=== PATIENT | female | born 1960 | race African-American/Black ===

== ENCOUNTER 2018-08-22 07:39 | Emergency (ER) | payer SELFPAY ==
[~2018-08-22] VITALS: Ht 160 cm; Wt 55.0 kg
[2018-08-22] MEDS ORDERED: SODIUM CHLORIDE 0.9% 1,000 ML IV ONE (08:04)
[2018-08-22] MEDS ORDERED: KETOROLAC 30MG/ML VIAL IV STA (08:04)
[2018-08-22] MEDS ORDERED: ONDANSETRON HCL 4MG/2ML INJ IV STA (08:04)
[2018-08-22] MEDS ORDERED: ACETAMINOPHEN 325MG TABLET PO ONE (08:45)
[2018-08-22 08:49] LABS: BASOPHILS % 0.5 % (0.0-2.0); EOSINOPHILS % 1.1 % (0.0-5.0); HEMATOCRIT. 40.4 % (36.0-48.0); HEMOGLOBIN. 13.5 g/dL (12.0-16.0); MEAN CORPUSCULAR HEMOGLOBIN 30.4 pg (28.0-32.0); MEAN CORPUSCULAR VOLUME 90.7 fL (81.0-99.0); MEAN PLATELET VOLUME 9.6 fl (7.4-10.4); MONOCYTES % 7.3 % (2.0-8.0); NEUTROPHILS % 70.1 % (40.0-76.0); PLATELET 243 x1000/uL (130-400); RED BLOOD CELL COUNT 4.45 mill/uL (4.2-5.4); RED CELL DISTRIBUTION WIDTH 14.7 % (11.6-14.6)
[2018-08-22 08:55] LABS: CHLORIDE 104 mEq/L (98-107)
[2018-08-22 12:30] VITALS: BP 138/76
== END 2018-08-22 12:32 | disposition home or self-care (01) ==
LOC: ER 08:05
DX: B34.9 Viral infection, unspecified (principal); J02.9 Acute pharyngitis, unspecified; M79.10 Myalgia, unspecified site; J45.909 Unspecified asthma, uncomplicated; R56.9 Unspecified convulsions; I10 Essential (primary) hypertension; Z86.73 Personal history of transient ischemic attack (TIA), and cerebral infarction without residual deficits; Z88.6 Allergy status to analgesic agent
CPT/HCPCS: 36415; 71045; 80053; 85025; 87804; 96361; 96374; 99285; J2405; J7030

== ENCOUNTER 2021-08-16 13:45 | Inpatient (IN) | payer MEDICAID, OTHER ==
[~2021-08-16] VITALS: Ht 157.5 cm; Wt 57.3 kg
[2021-08-16 15:00] LABS: BASOPHILS % 0.6 % (0.0-2.0); EOSINOPHILS % 0.4 % (0.0-5.0); HEMATOCRIT. 37.9 % (36.0-48.0); HEMOGLOBIN. 12.9 g/dL (12.0-16.0); LYMPHOCYTES % 32.6 % (20.0-50.0); MEAN CORPUSCULAR HEMOGLOBIN 35.5 pg (28.0-32.0); MEAN CORPUSCULAR VOLUME 104.7 fL (81.0-99.0); MEAN PLATELET VOLUME 10.6 fl (7.4-10.4); MONOCYTES % 14.9 % (2.0-8.0); NEUTROPHILS % 51.5 % (40.0-76.0); PLATELET 175 x1000/uL (130-400); RED BLOOD CELL COUNT 3.62 mill/uL (4.2-5.4); RED CELL DISTRIBUTION WIDTH 17.7 % (11.6-14.6)
[2021-08-16 15:08] LABS: CHLORIDE 89 mEq/L (98-107)
[2021-08-16 15:11] LABS: *AMPHETAMINES SCREEN URINE NEGATIVE (NEGATIVE); *BARBITURATES SCREEN URINE NEGATIVE (NEGATIVE); *BENZODIAZEPINES SCREEN URINE NEGATIVE (NEGATIVE); *COCAINE SCREEN URINE NEGATIVE (NEGATIVE); CANNABINOID URINE SCREEN PRESUMTIVE POSITIVE (NEGATIVE); METHADONE URINE SCREEN NEGATIVE (NEGATIVE); OPIATES URINE SCREEN NEGATIVE (NEGATIVE); PHENCYCLIDINE URINE SCREEN NEGATIVE (NEGATIVE)
[2021-08-16 15:16] LABS: ETHANOL BLOOD 50 mg/dL
[2021-08-16 15:18] LABS: BG BASE EXCESS 9.4 mmol/L (-2.0-2.0); BG CARBOXYHEMOGLOBIN 1.6 % (0.5-1.5); BG DEOXYHEMOGLOBIN 15.4 % (0.0-5.0); BG FRACTION INSPIRED OXYGEN 21; BG HCO3 ACT 32.7 mmol/L (22.0-26.0); BG METHEMOGLOBIN 0.7 % (0.0-1.5); BG OXYGEN SATURATION 84.2 % (92.0-98.5); BG OXYHEMOGLOBIN 82.3 % (94.0-97.0); BG PCO2 39.8 mmHg (35.0-45.0); BG PH 7.533 (7.350-7.450); BG PO2 45.8 mmHg (75.0-100.0); BG SAMPLE SITE RIGHT BRACHIAL; BG TOTAL HEMOGLOBIN 12.1 g/dL (12.0-18.0); BG VENT MODE ROOM AIR
[2021-08-16] MEDS ORDERED: CEFTRIAXONE 1 G PREMIX 50 ML IV ONE (15:30)
[2021-08-16] MEDS ORDERED: AZITHROMYCIN 500MG/250ML 250 ML IV ONE (15:30)
[2021-08-16] MEDS ORDERED: DEXAMETHASONE 10 MG/ML VIAL IV ONE (15:30)
[2021-08-16] MEDS ORDERED: DIPHENHYDRAMINE 50MG/ML VIAL IV PRN (20:30)
[2021-08-16] MEDS ORDERED: ONDANSETRON HCL 4MG/2ML INJ IV PRN (20:30)
[2021-08-16] MEDS ORDERED: CEFTRIAXONE 1 G PREMIX 50 ML IV SCH (20:30)
[2021-08-16] MEDS ORDERED: CLONIDINE 0.1MG TABLET PO PRN (20:30)
[2021-08-16] MEDS ORDERED: POTASSIUM CHLORIDE 20MEQ TABLET SR PO ONE (20:30)
[2021-08-16] MEDS: ENOXAPARIN 40MG/0.4ML SYR SUBCUT SCH (21:39)
[2021-08-16 22:00] VITALS: BP 109/80
[2021-08-16] MEDS ORDERED: ALBU6.7H15 INH (22:36)
[2021-08-16] MEDS ORDERED: GABA-529 PO (22:36)
[2021-08-16] MEDS ORDERED: LISI10TA26 PO (22:36)
[2021-08-16] MEDS ORDERED: LEVE1000 PO (22:36)
[2021-08-16] MEDS ORDERED: MIRT-118 PO (22:36)
[2021-08-17] VITALS: BP 105/62
[2021-08-17] MEDS ORDERED: ALBUTEROL 6.7GM HFA INHALER ORI PRN
[2021-08-17 04:00] VITALS: BP 104/57
[2021-08-17 07:13] LABS: HEMATOCRIT. 34.5 % (36.0-48.0); HEMOGLOBIN. 11.6 g/dL (12.0-16.0); MEAN CORPUSCULAR HEMOGLOBIN 35.3 pg (28.0-32.0); MEAN CORPUSCULAR VOLUME 105.3 fL (81.0-99.0); MEAN PLATELET VOLUME 11.4 fl (7.4-10.4); PLATELET 162 x1000/uL (130-400); RED BLOOD CELL COUNT 3.28 mill/uL (4.2-5.4); RED CELL DISTRIBUTION WIDTH 17.5 % (11.6-14.6)
[2021-08-17 07:19] LABS: CHLORIDE 90 mEq/L (98-107)
[2021-08-17 07:36] LABS: HDL CHOLESTEROL 77 mg/dL (40-59); LDL CHOLESTEROL 102 mg/dL (5-100)
[2021-08-17 08:00] VITALS: BP 115/75
[2021-08-17] MEDS: ACETAMINOPHEN 325MG TABLET PO PRN (09:40)
[2021-08-17] MEDS: CEFTRIAXONE 1,000 MG in DEXTROSE 5% WATER 50 ML IV SCH (09:44)
[2021-08-17] MEDS: DEXAMETHASONE 10 MG/ML VIAL IV SCH (09:45)
[2021-08-17] MEDS ORDERED: AZITHROMYCIN 500 MG in DEXT 5% WATER 250 ML IV SCH (10:00)
[2021-08-17 12:00] VITALS: BP 134/88
[2021-08-17] MEDS: HYDROCODONE/ACETAMINOPHEN 5/325MG TABLET PO PRN (12:43)
[2021-08-17] MEDS ORDERED: NALOXONE HCL 0.4MG/ML VIAL IV PRN (12:45)
[2021-08-17] MEDS: LISINOPRIL 10MG TABLET PO SCH (13:29)
[2021-08-17] MEDS: GABAPENTIN 100MG CAPSULE PO SCH ×2 (13:29→18:25)
[2021-08-17] MEDS: KCL 20MEQ/100ML PREMIX 100 ML IV SCH ×4 (14:00→17:50)
[2021-08-17 15:06] LABS: C REACTIVE PROTEIN QUANT 4.7 mg/L (0.0-3.0)
[2021-08-17 16:00] VITALS: BP 112/73
[2021-08-17 16:24] LABS: NUCLEATED RED BLOOD CELLS 2 /100 WBC; PLATELET ESTIMATE NORMAL
[2021-08-17] MEDS ORDERED: POTASSIUM CHLORIDE 20MEQ/PACKET PO NR (18:30)
[2021-08-17 20:00] VITALS: BP 99/67
[2021-08-17] MEDS: ENOXAPARIN 40MG/0.4ML SYR SUBCUT SCH (20:55)
[2021-08-17] MEDS: LEVETIRACETAM 500MG/5ML CUP PO SCH (20:55)
[2021-08-17] MEDS: MIRTAZAPINE 15MG TABLET PO SCH (20:55)
[2021-08-18] VITALS: BP 101/72
[2021-08-18 04:00] VITALS: BP 94/50
[2021-08-18 08:00] VITALS: BP 97/64
[2021-08-18] MEDS: LISINOPRIL 10MG TABLET PO SCH (08:58)
[2021-08-18] MEDS: CEFTRIAXONE 1,000 MG in DEXTROSE 5% WATER 50 ML IV SCH (08:59)
[2021-08-18] MEDS: DEXAMETHASONE 10 MG/ML VIAL IV SCH (08:59)
[2021-08-18] MEDS: GABAPENTIN 100MG CAPSULE PO SCH ×3 (08:59→17:14)
[2021-08-18] MEDS: AZITHROMYCIN 500 MG in DEXT 5% WATER 250 ML IV SCH (10:24)
[2021-08-18 12:00] VITALS: BP 103/73
[2021-08-18 16:00] VITALS: BP 130/96
[2021-08-18] MEDS: GUAIFENESIN-DM 200MG-20MG/10ML UDC PO PRN (17:17)
[2021-08-18] MEDS: HYDROCODONE/ACETAMINOPHEN 5/325MG TABLET PO PRN (17:18)
[2021-08-18 17:28] LABS: BASOPHILS % 0.5 % (0.0-2.0); HEMATOCRIT. 34.8 % (36.0-48.0); HEMOGLOBIN. 11.4 g/dL (12.0-16.0); MEAN CORPUSCULAR HEMOGLOBIN 34.6 pg (28.0-32.0); MEAN CORPUSCULAR VOLUME 105.8 fL (81.0-99.0); MEAN PLATELET VOLUME 10.5 fl (7.4-10.4); MONOCYTES % 7.1 % (2.0-8.0); NEUTROPHILS % 83.4 % (40.0-76.0); PLATELET 292 x1000/uL (130-400); RED BLOOD CELL COUNT 3.29 mill/uL (4.2-5.4); RED CELL DISTRIBUTION WIDTH 17.6 % (11.6-14.6)
[2021-08-18 17:46] LABS: CHLORIDE 94 mEq/L (98-107)
[2021-08-18 20:00] VITALS: BP 95/57
[2021-08-18] MEDS: LEVETIRACETAM 500MG/5ML CUP PO SCH (20:53)
[2021-08-18] MEDS: MIRTAZAPINE 15MG TABLET PO SCH (20:53)
[2021-08-18] MEDS: ENOXAPARIN 40MG/0.4ML SYR SUBCUT SCH (20:54)
[2021-08-19] VITALS: BP 101/53
[2021-08-19 04:00] VITALS: BP 105/66
[2021-08-19] MEDS: ACETAMINOPHEN 325MG TABLET PO PRN ×2 (05:55→20:09)
[2021-08-19] MEDS: GUAIFENESIN-DM 200MG-20MG/10ML UDC PO PRN ×4 (05:56→20:09)
[2021-08-19 07:35] LABS: HEMATOCRIT. 32.5 % (36.0-48.0); HEMOGLOBIN. 10.8 g/dL (12.0-16.0); MEAN CORPUSCULAR HEMOGLOBIN 34.9 pg (28.0-32.0); MEAN CORPUSCULAR VOLUME 105.1 fL (81.0-99.0); MEAN PLATELET VOLUME 10.6 fl (7.4-10.4); PLATELET 274 x1000/uL (130-400); RED CELL DISTRIBUTION WIDTH 17.5 % (11.6-14.6)
[2021-08-19 07:38] LABS: CHLORIDE 95 mEq/L (98-107)
[2021-08-19 08:00] VITALS: BP 102/64
[2021-08-19] MEDS: DEXAMETHASONE 10 MG/ML VIAL IV SCH (08:15)
[2021-08-19] MEDS: GABAPENTIN 100MG CAPSULE PO SCH ×3 (08:15→15:55)
[2021-08-19] MEDS: CEFTRIAXONE 1,000 MG in DEXTROSE 5% WATER 50 ML IV SCH (08:15)
[2021-08-19] MEDS: LISINOPRIL 10MG TABLET PO SCH (09:00)
[2021-08-19] MEDS: AZITHROMYCIN 500 MG in DEXT 5% WATER 250 ML IV SCH (11:12)
[2021-08-19 12:00] VITALS: BP 110/76
[2021-08-19 16:00] VITALS: BP 103/72
[2021-08-19] MEDS ORDERED: POTASSIUM CHLORIDE 20MEQ TABLET SR PO NR (19:30)
[2021-08-19 20:00] VITALS: BP 126/86
[2021-08-19] MEDS: MIRTAZAPINE 15MG TABLET PO SCH (20:09)
[2021-08-19] MEDS: LEVETIRACETAM 500MG/5ML CUP PO SCH (20:09)
[2021-08-19] MEDS: ENOXAPARIN 40MG/0.4ML SYR SUBCUT SCH (20:10)
[2021-08-19 22:37] LABS: PLATELET ESTIMATE NORMAL
[2021-08-20] VITALS: BP 144/88
[2021-08-20 04:00] VITALS: BP 118/68
[2021-08-20 07:27] LABS: HEMATOCRIT. 33.8 % (36.0-48.0); HEMOGLOBIN. 11.3 g/dL (12.0-16.0); MEAN CORPUSCULAR HEMOGLOBIN 35.2 pg (28.0-32.0); MEAN CORPUSCULAR VOLUME 105.5 fL (81.0-99.0); MEAN PLATELET VOLUME 9.9 fl (7.4-10.4); PLATELET 337 x1000/uL (130-400); RED CELL DISTRIBUTION WIDTH 17.6 % (11.6-14.6)
[2021-08-20 08:00] VITALS: BP 121/84
[2021-08-20 08:04] LABS: CHLORIDE 97 mEq/L (98-107)
[2021-08-20] MEDS: ACETAMINOPHEN 325MG TABLET PO PRN (08:20)
[2021-08-20] MEDS: DEXAMETHASONE 10 MG/ML VIAL IV SCH (08:20)
[2021-08-20] MEDS: GABAPENTIN 100MG CAPSULE PO SCH ×2 (08:20→12:34)
[2021-08-20] MEDS: GUAIFENESIN-DM 200MG-20MG/10ML UDC PO PRN (08:20)
[2021-08-20] MEDS: LISINOPRIL 10MG TABLET PO SCH (08:21)
[2021-08-20] MEDS: CEFTRIAXONE 1,000 MG in DEXTROSE 5% WATER 50 ML IV SCH (08:21)
[2021-08-20] MEDS ORDERED: BENZONATATE 100MG CAPSULE PO PRN (11:00)
[2021-08-20] MEDS ORDERED: AZITHROMYCIN 500 MG TABLET PO SCH (11:00)
[2021-08-20] MEDS ORDERED: AZIT500T8 MT ×3 (11:01→12:14)
[2021-08-20] MEDS ORDERED: BENZ-16 MT ×3 (11:01→12:14)
[2021-08-20] MEDS ORDERED: GUAI-740 MT ×3 (11:01→12:14)
[2021-08-20] MEDS ORDERED: DEXA6TAB MT ×3 (11:01→12:14)
[2021-08-20 12:00] VITALS: BP 117/72
[2021-08-20 13:28] LABS: PLATELET ESTIMATE NORMAL
[2021-08-20 15:53] VITALS: BP 113/72
[2021-08-20 16:00] VITALS: BP 113/72
== END 2021-08-20 16:30 | disposition home or self-care (01) | DRG 720 ==
LOC: ER 14:27 → EDBEDREQTM 19:04 → EDBEDREQ 19:04 → EDBEDREQSVC 19:04 → 7WST 19:34 → EDBEDREQSVC 19:36 → ENRESERV 20:05
PROVIDERS: ADMIT Internal Medicine; ATTEND Internal Medicine
DX: A41.89 Other specified sepsis (principal); J96.01 Acute respiratory failure with hypoxia; J12.82 Pneumonia due to coronavirus disease 2019; U07.1 COVID-19; F17.210 Nicotine dependence, cigarettes, uncomplicated; I10 Essential (primary) hypertension; J45.909 Unspecified asthma, uncomplicated; F41.9 Anxiety disorder, unspecified; R74.01 Elevation of levels of liver transaminase levels; E78.5 Hyperlipidemia, unspecified; E87.6 Hypokalemia; G40.909 Epilepsy, unspecified, not intractable, without status epilepticus; Z86.73 Personal history of transient ischemic attack (TIA), and cerebral infarction without residual deficits; Z90.711 Acquired absence of uterus with remaining cervical stump; Z79.899 Other long term (current) drug therapy; Z88.8 Allergy status to other drugs, medicaments and biological substances; Z91.041 Radiographic dye allergy status
CPT/HCPCS: 36415; 36600; 71045; 80048; 80053; 80061; 80305; 80320; 82375; 82728; 82805; 83615; 83880; 84145; 84443; 84484; 85025; 86140; 87426; 87804; 93005; 93970; 99291; C1893; J0456; J0696; J1100; J1650; J3480; J7060; U0003; U0005; G0480